=== PATIENT | male | born 1950 | race Two or more races ===

== ENCOUNTER 2019-05-08 09:37 | Emergency (ER) | payer OTHER ==
[~2019-05-08] VITALS: Ht 175.3 cm; Wt 89.4 kg
[2019-05-08] MEDS ORDERED: METFORMIN HCL500 MG (10:07)
== END 2019-05-08 10:54 | disposition home or self-care (01) ==
LOC: ER 09:37
DX: B07.0 Plantar wart (principal)

== ENCOUNTER 2020-07-21 08:31 | Emergency (ER) | payer OTHER ==
[~2020-07-21] VITALS: Ht 175.3 cm; Wt 85.7 kg
[~2020-07-21 08:31] MED LIST: METFORMIN HCL500 MG
[2020-07-21] MEDS ORDERED: FORTAMET500 MG (08:48)
== END 2020-07-21 15:37 | disposition home or self-care (01) ==
LOC: ER 08:31
DX: R53.81 Other malaise (principal); T50.Z95A Adverse effect of other vaccines and biological substances, initial encounter